=== PATIENT | female | born 2000 | race Caucasian/White ===

== ENCOUNTER 2020-04-03 09:49 | Observation (INO) ==
--- NOTE | 2020-04-03 10:41 | Emergency Department Note ---
History of Present Illness General Chief complaint: Abdominal Pain Stated complaint: ABD PAIN, APPENDICITIS, SLIGHT FEVER Time Seen by Provider: 04/03/20 10:11 History of Present Illness Maximum Pain Intensity: 1 Patient is an otherwise healthy 19-year-old female who presents to the emergency department from a local urgent care center for evaluation of abdominal pain. Patient relates that about 3 days ago, she began develop some indigestion. She thought it was related to foods that she had eaten, she tried eliminating dairy over the weekend, but symptoms persisted. She feels bloated, and has had a lot of belching. She also notes some discomfort in the left upper quadrant area, states that it sometimes feels swollen. That has worsened over the last 36 hours. She reports that she had a telehealth visit with [facility] for these symptoms at this morning. She was advised to be evaluated, so she went to a local [facility] facility. They did a brief physical exam, and noted that she had discomfort in the right lower quadrant, thus referred her to the emergency department for further work-up. The patient denies fever, chills, nausea or vomiting. She has had 2 bowel movements per day the last 2 days which is abnormal for her and that she normally only moves her bowels once per day, but the bowel movements were normal, without blood, melena or diarrhea. No urinary symptoms. She is on an oral contraceptive, she is due for her menstrual cycle in the next couple of days. She denies any vaginal discharge. She denies a history of stomach problems. She currently rates her discomfort a 1/10. Home Medications Home Medications Medication Instructions Recorded Confirmed Type norgestimate-ethinyl estradiol 1 tab PO QAM 04/03/20 04/03/20 History [Sprarjunec (28)] Allergies Allergy/AdvReac Type Severity Reaction Status Date / Time No Known Drug Allergies Allergy Verified 04/03/20 11:59 Past Med/Surg History Medical History No significant past medical history Surgical History Hx of tonsillectomy Hx of wisdom tooth extraction Family History (Updated 11/17/19 @ 11:52 by Suzi Orozco) Other Cardiac disorder Hypertension Social History Smoking Status: Never smoker marital status: Single current occupational status: student current occupation: [employer] Feels Safe at Home: Yes Dental Care, Regularly: Yes Seatbelt Use: always Sunscreen Use: Yes Review of Systems A total of 10 systems reviewed and were otherwise negative Physical Exam Vital Signs Vital Signs - 24 hr 04/03/20 10:00 04/03/20 12:48 04/03/20 14:00 Temperature 36.9 C Temperature Source Oral Pulse Rate 99 H Pulse Rate [Finger] 78 83 Respiratory Rate 18 17 18 Respiratory Effort / Characteristics Non-Labored Respiratory Depth Normal Respiratory Pattern Regular Blood Pressure 166/106 H Blood Pressure [Right Arm] 115/92 132/79 Blood Pressure Mean 126 Blood Pressure Mean [Right Arm] 99 96 Blood Pressure Position Sitting Pulse Oximetry 99 100 98 Oxygen Delivery Method Room Air Room Air Room Air Sepsis Recent Fever Within 48 Hours No Sepsis New/Unexplained Change in Mental Status No Sepsis Action Taken by Nursing No Action Required 04/03/20 15:17 Temperature Temperature Source Pulse Rate Pulse Rate [Finger] 68 Respiratory Rate 12 Respiratory Effort / Characteristics Non-Labored Spontaneous Respiratory Depth Normal Respiratory Pattern Regular Blood Pressure Blood Pressure [Right Arm] 133/87 Blood Pressure Mean Blood Pressure Mean [Right Arm] 102 Blood Pressure Position Pulse Oximetry 100 Oxygen Delivery Method Room Air Sepsis Recent Fever Within 48 Hours Sepsis New/Unexplained Change in Mental Status Sepsis Action Taken by Nursing CONSTITUTIONAL: Patient is a well-appearing 19-year-old female who is awake and alert and in no acute distress. EYES: Pupils equal, round, reactive to light and accommodation. EOMs intact without nystagmus. Sclera CARDIOVASCULAR: Regular rate and rhythm, with normal S1 and S2, no murmur or gallop or rub is heard. Peripheral pulses easily palpable. RESPIRATORY: Breath sounds equal and clear to auscultation without wheezes, rales, or rhonchi heard. Full and equal chest expansion without accessory muscle use or retractions. ABDOMEN: Bowel sounds are present. Abdomen is soft, scaphoid, mildly tender to percussion in the suprapubic, right lower quadrant and left lower quadrant, and tender to palpation in the right lower quadrant without guarding or rebound. Slight discomfort in the left mid abdomen as well. INTEGUMENTARY: No lesions or rash, normal skin turgor. LYMPH: No lymphadenopathy. Course Course The patient was seen and assessed as above. Old records are reviewed. She presents to the emergency department for evaluation of several days of abdominal discomfort, bloating and belching. She was found to have right lower quadrant tenderness at a local urgent care center and was thus referred here for evaluation. On exam here, she does have some tenderness in both the left and the right lower quadrant to palpation. Certainly no surgical abdomen. IV lock was initiated and laboratory studies were collected. She was instructed to remain n.p.o. She was hydrated gently with normal saline solution. CBC with differential, CMP, urine microscopy and urine test were performed. Acute abdominal series and pelvic ultrasound were performed first, while oral CT prep was initiated. Laboratory studies noted a white count of 4500, no left shift, no bandemia. No anemia. Electrolytes and renal functions are normal. Transaminases are not elevated. Urine microscopy notes 3+ ketones, trace blood, but no RBCs, negative leukocyte esterase, negative nitrates, 10-20 epithelial cells and 1+ bacteria. By protocol, urine microscopy is pending. Urine test is negative. Acute abdominal series was performed. Chest was clear without active disease, there was moderate fecal retention in the colon, no evidence for obstruction or free air. Pelvic ultrasound was unremarkable. Ovaries were normal without concerning adnexal lesions. No free fluid in the pelvic cul-de-sac. Appendiceal ultrasound did not visualize the appendix. Patient was reassessed after after x-ray and ultrasound. Her mother had arrived at this time. Laboratory studies and diagnostic imaging studies were reviewed with her. Patient endorsed that she had fairly significant discomfort in the right lower quadrant with the pelvic/appendiceal ultrasound. Given negative imaging thus far and persistent right lower quadrant pain felt that it was appropriate to proceed with the CT scan with IV and oral contrast. CT findings are concerning for acute appendicitis involving the appendiceal tip with mild periappendiceal infiltration with dilatation and wall thickening of the appendiceal tip. No free air or abscess. CT scan findings were reviewed with the patient and her mother. Discussed with them consultation with general surgery, spoke with Fern Spann PA-C, with Dr. Singh. They have evaluated the patient in the emergency department, and will plan to take her to the OR for surgical intervention. Administered Medications Sodium Chloride (Nss 1000ml) 1,000 mls @ 250 mls/hr IV .Q4H CHAI Stop: 05/03/20 10:44 Last Infusion: 04/03/20 15:09 Dose: 0 mls/hr Documented by: [id number] Admin: 04/03/20 11:04 Dose: 250 mls/hr Documented by: [id number] Discontinued Medications Ioversol (Ioversol 100ml) 92 ml IV ONCE ONE Stop: 04/03/20 14:12 Last Admin: 04/03/20 14:11 Dose: 92 ml Documented by: [id number] Medical Decision Making Differential Diagnosis Differential diagnoses entertained include UTI, pyelonephritis, renal colic, , ectopic , PID, tubo-ovarian abscess, appendicitis, ovarian cyst, ovarian torsion, constipation, bowel obstruction, among others. Medical Records Attestation: I reviewed the patient's medical records. Home Medications Current Medication List: was personally reviewed by me Laboratory Data Attestation: I reviewed the patient's lab results. Result diagrams: 04/03/20 11:00 04/03/20 11:00 Lab Results 04/03/20 04/03/20 04/03/20 Range/Units 11:00 11:00 11:00 WBC 4.50 L (4.8-10.8) K/uL RBC 4.89 (4.2-5.4) M/uL Hgb 14.6 (12.0-16.0) g/dL Hct 42.0 (37-47) % MCV 85.9 (80-100) fL MCH 29.9 (25-34) pg MCHC 34.8 (32-36) g/dL RDW Std Deviation 39.9 (36.4-46.3) fL RDW Coeff of Christianne 12.6 (11.5-14.5) % Plt Count 235 (130-400) K/uL MPV 10.0 (7.4-10.4) fL Immature Gran % (Auto) 0.0 % Neut % (Auto) 64.4 % Lymph % (Auto) 26.7 % Pershing % (Auto) 7.8 % Eos % (Auto) 0.7 % Baso % (Auto) 0.4 % Neut # (Auto) 2.90 (1.4-6.5) K/uL Lymph # (Auto) 1.20 (1.2-3.4) K/uL Pershing # (Auto) 0.35 (0.11-0.59) K/uL Eos # (Auto) 0.03 (0-0.5) K/uL Baso # (Auto) 0.02 (0-0.2) K/uL Immature Gran # (Auto) 0.00 (0.00-0.02) K/uL Sodium 137 (136-145) mmol/L Potassium 3.7 (3.5-5.1) mmol/L Chloride 105 (98-107) mmol/L Carbon Dioxide 24 (21-32) mmol/L Anion Gap 8.0 (3-11) BUN 10 (7-18) mg/dl Creatinine 0.80 (0.6-1.2) mg/dl Est Cr Clr Drug Dosing 92.7 ml/min Est GFR ( Amer) 122.2 Est GFR (Non-Af Amer) 105.4 BUN/Creatinine Ratio 12.1 (10-20) Glucose 74 (70-99) mg/dl Calcium 9.0 (8.5-10.1) mg/dl Total Bilirubin 0.8 (0.2-1) mg/dl AST 14 L (15-37) U/L ALT 15 (12-78) U/L Alkaline Phosphatase 58 (45-117) U/L Total Protein 8.2 (6.4-8.2) gm/dl Albumin 3.8 (3.4-5.0) gm/dl Globulin 4.4 H (2.5-4.0) gm/dl Albumin/Globulin Ratio 0.9 (0.9-2) Urine Color Yellow Urine Appearance Clear (Clear) Urine pH 6.0 (4.5-7.5) Ur Specific [place] 1.020 (1.000-1.030) Urine Protein 1+ H (Negative) Urine Glucose (UA) Negative (Negative) Urine Ketones 3+ H (Negative) Urine Blood Trace H (Negative) Urine Nitrite Negative (Negative) Urine Bilirubin Negative (Negative) Urine Urobilinogen Negative (Negative) Ur Leukocyte Esterase Negative (Negative) Urine RBC 0-4 (0-4) /hpf Urine WBC 0-5 (0-5) /hpf Ur Epithelial Cells 10-20 H (0-5) /lpf Urine Bacteria 1+ H (Negative) Urine Mucus Present A (None Prsent) POC Ur Test (NEG) 04/03/20 Range/Units 11:00 WBC (4.8-10.8) K/uL RBC (4.2-5.4) M/uL Hgb (12.0-16.0) g/dL Hct (37-47) % MCV (80-100) fL MCH (25-34) pg MCHC (32-36) g/dL RDW Std Deviation (36.4-46.3) fL RDW Coeff of Christianne (11.5-14.5) % Plt Count (130-400) K/uL MPV (7.4-10.4) fL Immature Gran % (Auto) % Neut % (Auto) % Lymph % (Auto) % Pershing % (Auto) % Eos % (Auto) % Baso % (Auto) % Neut # (Auto) (1.4-6.5) K/uL Lymph # (Auto) (1.2-3.4) K/uL Pershing # (Auto) (0.11-0.59) K/uL Eos # (Auto) (0-0.5) K/uL Baso # (Auto) (0-0.2) K/uL Immature Gran # (Auto) (0.00-0.02) K/uL Sodium (136-145) mmol/L Potassium (3.5-5.1) mmol/L Chloride (98-107) mmol/L Carbon Dioxide (21-32) mmol/L Anion Gap (3-11) BUN (7-18) mg/dl Creatinine (0.6-1.2) mg/dl Est Cr Clr Drug Dosing ml/min Est GFR ( Amer) Est GFR (Non-Af Amer) BUN/Creatinine Ratio (10-20) Glucose (70-99) mg/dl Calcium (8.5-10.1) mg/dl Total Bilirubin (0.2-1) mg/dl AST (15-37) U/L ALT (12-78) U/L Alkaline Phosphatase (45-117) U/L Total Protein (6.4-8.2) gm/dl Albumin (3.4-5.0) gm/dl Globulin (2.5-4.0) gm/dl Albumin/Globulin Ratio (0.9-2) Urine Color Urine Appearance (Clear) Urine pH (4.5-7.5) Ur Specific [place] (1.000-1.030) Urine Protein (Negative) Urine Glucose (UA) (Negative) Urine Ketones (Negative) Urine Blood (Negative) Urine Nitrite (Negative) Urine Bilirubin (Negative) Urine Urobilinogen (Negative) Ur Leukocyte Esterase (Negative) Urine RBC (0-4) /hpf Urine WBC (0-5) /hpf Ur Epithelial Cells (0-5) /lpf Urine Bacteria (Negative) Urine Mucus (None Prsent) POC Ur Test NEG (NEG) Imaging Data Attestation: I personally reviewed and interpreted this imaging study as follows: Radiologist's Impression: PA CHEST WITH ABDOMINAL SERIES CLINICAL HISTORY: Left upper quadrant abdominal pain. Bloating. FINDINGS: A PA chest radiograph is obtained. No prior studies are available for comparison at the time of dictation. The cardiomediastinal silhouette is unremarkable. An accessory azygous fissure is incidentally noted. The lungs and pleural spaces are clear. No pneumothorax is seen. The bony thorax is grossly intact. There is mild thoracic scoliosis. Supine and erect abdominal radiographs are obtained. No prior studies are av ailable for comparison at the time of dictation. There is a nonobstructed abdominal bowel gas pattern. Moderate fecal retention is noted in the colon. No evidence of intraperitoneal free air is seen. There are no abnormal abdominal calcifications. Small phleboliths are observed in the pelvis. The lumbosacral spine and bony pelvis appear intact. IMPRESSION: 1. No active disease in the chest. 2. Nonobstructed abdominal bowel gas pattern. ULTRASOUND OF THE PELVIS CLINICAL HISTORY: Right pelvic pain. COMPARISON STUDY: No priors. TECHNIQUE: Real-time, grayscale, and color flow sonography of the pelvis is performed both transabdominally and endovaginally. Images are reviewed in the transverse and longitudinal planes. The endovaginal examination was performed fo r better assessment of the ovaries and adnexa. FINDINGS: Uterus: The uterus is normal in size and echotexture, measuring 7.4 x 3.2 x 5.2 cm. Endometrium: The endometrium is normal in appearance, and the endometrial stripe is normal in thickness measuring up to 0.2 cm. Ovaries: The ovaries are normal in size and morphology. The right ovary measures 2.7 x 1.1 x 1.3 cm and the left ovary measures 2.0 x 0.8 x 1.9 cm. Small follicles are noted bilaterally. Normal Doppler waveforms are shown within both ovaries. Pelvis: There is no free fluid in the cul-de-sac. No concerning adnexal lesion is seen. IMPRESSION: No acute sonographic abnormality is identified. CT OF THE ABDOMEN AND PELVIS WITH CONTRAST CLINICAL HISTORY: LOWER ABDOMINAL PAIN X 2 DAYS COMPARISON STUDY: Appendix ultrasound pelvic ultrasound performed earlier today. TECHNIQUE: Following IV administration of 92 mL of Optiray-320, axial images of the abdomen and pelvis were obtained from the lung bases to the proximal femurs. Images were reviewed in the axial, sagittal, and coronal planes. IV contrast was administered without complication. Automated exposure control was utilized for the study. A dose lowering technique was utilized adhering to the principles of ALARA. Oral contrast was administered. CT DOSE: 296.63 mGycm FINDINGS: Lung bases are unremarkable. No pneumatosis, free air or portal venous gas is present. The liver, spleen, adrenal glands, kidneys and pancreas are normal. There is no biliary or pancreatic ductal dilatation. There is no hydronephrosis. There is no evidence for a bowel obstruction. The proximal to mid appendix is normal in caliber and filled with oral contrast. There is wall thickening and dilatation of the appendiceal tip that measures 1.3 cm in mechelle iber. There is mild adjacent infiltration. There is no abscess. There is no hydronephrosis. Pelvic calcifications likely reflect phlebolith. Major vasculature is patent. There are no suspicious osseous lesions. IMPRESSION: Findings consistent with acute appendicitis involving the appendiceal tip. Mild periappendiceal infiltration with dilatation and wall thickening of the appendiceal tip. No free air or abscess. Blood Pressure Blood Pressure Findings: Normal blood pressure Blood Pressure Disposition: did not require urgent referral MDM Narrative See ED course. Impression & Plan Acute appendicitis Discharge Plan Visit Data Chief Complaint: Abdominal Pain Stated Complaint: ABD PAIN, APPENDICITIS, SLIGHT FEVER ED Provider: Benjamin Veronica ED Midlevel Provider: Apolinar Cho Discharge Problem: Acute appendicitis Patient Disposition: Being Evaluated by Surgeon Forms Stand Alone Forms: [facility] [employer] Prescriptions Prescriptions: No Action norgestimate-ethinyl estradiol [Sprintec (28)] 0.25-35 mg-mcg tablet 1 tab PO QAM RF: 0 Referrals Referrals: [facility] [Primary Care Provider] -
[2020-04-03] MEDS: SODIUM CHLORIDE 0.9% 1000ML 1,000 ML IV SCH ×3 (11:04→23:01)
[2020-04-03 11:10] LABS: Appearance Urine Clear (Clear); Bilirubin Urine Negative (Negative); Blood Urine Trace (Negative); Color Urine Yellow; Glucose Urine UA Negative (Negative); Ketones Urine 3+ (Negative); Leukocyte Esterase Urine Negative (Negative); Nitrite Urine Negative (Negative); Protein Urine 1+ (Negative); Urobilinogen Urine Negative (Negative)
[2020-04-03 11:11] LABS: Basophils # (auto) 0.02 K/uL (0-0.2); Basophils % (auto) 0.4 %; Eosinophils # (auto) 0.03 K/uL (0-0.5); Eosinophils % (auto) 0.7 %; Hemoglobin 14.6 g/dL (12.0-16.0); Lymphocytes % (auto) 26.7 %; Mean Corpuscular Hemoglobin 29.9 pg (25-34); Mean Corpuscular Hgb Conc 34.8 g/dL (32-36); Mean Corpuscular Volume 85.9 fL (80-100); Monocytes # (auto) 0.35 K/uL (0.11-0.59); Monocytes % (auto) 7.8 %; Neutrophils % (auto) 64.4 %; Platelet Count 235 K/uL (130-400); RDW Coefficient of Variation 12.6 % (11.5-14.5); RDW Standard Deviation 39.9 fL (36.4-46.3); Red Blood Count 4.89 M/uL (4.2-5.4)
[2020-04-03 11:25] LABS: Mucus Urine Present (None Prsent)
[2020-04-03 11:26] LABS: Bacteria Urine 1+ (Negative); RBC Urine 0-4 /hpf (0-4); WBC Urine 0-5 /hpf (0-5)
[2020-04-03 11:31] LABS: Albumin Level 3.8 gm/dl (3.4-5.0); BUN Creatinine Ratio 12.1 (10-20); Creatinine Clr Calc Pharmacy 92.7 ml/min; Est GFR (African American) 122.2; Est GFR (Non-African American) 105.4; Potassium 3.7 mmol/L (3.5-5.1)
[2020-04-03 11:34] LABS: Albumin Globulin Ratio 0.9 (0.9-2); Bilirubin,Total 0.8 mg/dl (0.2-1); Globulin 4.4 gm/dl (2.5-4.0); Total Protein 8.2 gm/dl (6.4-8.2)
--- NOTE | 2020-04-03 11:39 | XRay Report ---
PA CHEST WITH ABDOMINAL SERIES CLINICAL HISTORY: Left upper quadrant abdominal pain. Bloating. FINDINGS: A PA chest radiograph is obtained. No prior studies are available for comparison at the time of dicta tion. The cardiomediastinal silhouette is unremarkable. An accessory azygous fissure is incidentally noted. The lungs and pleural spaces are clear. No pneumothorax is seen. The bony thorax is grossly in tact. There is mild thoracic scoliosis. Supine and erect abdominal radiographs are obtained. No prior studies are available for comparison at the time of dictation. There is a nonobstructed abdominal bowel gas pattern. Moderate fecal retenti on is noted in the colon. No evidence of intraperitoneal free air is seen. There are no abnormal abdo cheryl calcifications. Small phleboliths are observed in the pelvis. The lumbosacral spine and bony pe lvis appear intact. IMPRESSION: 1. No active disease in the chest. 2. Nonobstructed abdominal bowel gas pattern. ACT 112: Negative or not required by law. Electronically signed by: Pavel Reyna M.D. 04/03/2020 11:37 AM
--- NOTE | 2020-04-03 12:41 | Ultrasound Report ---
ULTRASOUND OF THE APPENDIX CLINICAL HISTORY: Right lower quadrant abdominal pain. COMPARISON STUDY: Abdominal radiographs dated 04/03/2020. FINDINGS: Real-time, grayscale, and color flow sonography of the right lower quadrant was performed t o assess for acute appendicitis. The appendix was not discretely visualized. No inflammatory changes or free fluid are seen in the right lower quadrant. No lymphadenopathy was seen. IMPRESSION: Nonvisualization of the appendix. Note that this does not exclude acute appendicitis. ACT 112: Negative or not required by law. Electronically signed by: Pavel Reyna M.D. 04/03/2020 12:40 PM
--- NOTE | 2020-04-03 12:43 | Ultrasound Report ---
ULTRASOUND OF THE PELVIS CLINICAL HISTORY: Right pelvic pain. COMPARISON STUDY: No priors. TECHNIQUE: Real-time, grayscale, and color flow sonography of the pelvis is performed both transabdom inally and endovaginally. Images are reviewed in the transverse and longitudinal planes. The endovagi nal examination was performed for better assessment of the ovaries and adnexa. FINDINGS: Uterus: The uterus is normal in size and echotexture, measuring 7.4 x 3.2 x 5.2 cm. Endometrium: The endometrium is normal in appearance, and the endometrial stripe is normal in thickne ss measuring up to 0.2 cm. Ovaries: The ovaries are normal in size and morphology. The right ovary measures 2.7 x 1.1 x 1.3 cm a nd the left ovary measures 2.0 x 0.8 x 1.9 cm. Small follicles are noted bilaterally. Normal Doppler waveforms are shown within both ovaries. Pelvis: There is no free fluid in the cul-de-sac. No concerning adnexal lesion is seen. IMPRESSION: No acute sonographic abnormality is identified. ACT 112: Negative or not required by law. Electronically signed by: Pavel Reyna M.D. 04/03/2020 12:41 PM
[2020-04-03] MEDS ORDERED: IOVERSOL 100ml IV ONE (14:11)
--- NOTE | 2020-04-03 14:24 | CT Scan Report ---
CT OF THE ABDOMEN AND PELVIS WITH CONTRAST CLINICAL HISTORY: LOWER ABDOMINAL PAIN X 2 DAYS COMPARISON STUDY: Appendix ultrasound pelvic ultrasound performed earlier today. TECHNIQUE: Following IV administration of 92 mL of Optiray-320, axial images of the abdomen and pelvi s were obtained from the lung bases to the proximal femurs. Images were reviewed in the axial, sagitt al, and coronal planes. IV contrast was administered without complication. Automated exposure contro l was utilized for the study. A dose lowering technique was utilized adhering to the principles of A YOUSUF. Oral contrast was administered. CT DOSE: 296.63 mGycm FINDINGS: Lung bases are unremarkable. No pneumatosis, free air or portal venous gas is present. The liver, spleen, adrenal glands, kidneys and pancreas are normal. There is no biliary or pancreatic carroll yenifer dilatation. There is no hydronephrosis. There is no evidence for a bowel obstruction. The proxima l to mid appendix is normal in caliber and filled with oral contrast. There is wall thickening and di latation of the appendiceal tip that measures 1.3 cm in caliber. There is mild adjacent infiltration. There is no abscess. There is no hydronephrosis. Pelvic calcifications likely reflect phlebolith. Ma elva vasculature is patent. There are no suspicious osseous lesions. IMPRESSION: Findings consistent with acute appendicitis involving the appendiceal tip. Mild periappe ndiceal infiltration with dilatation and wall thickening of the appendiceal tip. No free air or absce ss. ACT 112: Negative or not required by law. Electronically signed by: Rich Arias M.D. 04/03/2020 2:23 PM
[2020-04-03] MEDS ORDERED: cefOXitin 2,000 MG in DEXTROSE 5% 50 ML IV STA (15:21)
--- NOTE | 2020-04-03 15:21 | History & Physical Report ---
Date of Service April 03, 2020 Assessment & Plan (1) Acute appendicitis: 19 year-old otherwise healthy [employer] student presented to ER with 2-3 day history of abdominal pain, bloating, and indigestion. ER work-up showed no leukocytosis but tip of appendix dilated at 1.3 cm with periappendiceal infiltration consistent with tip appendicitis. Afebrile, vitals stable. Plan: Dr. Singh discussed CT findings and recommended laparoscopic appendectomy. Procedure and risks discussed and informed consent obtained Keep NPO 2 gms Cefoxitin preop med/surg postop, likely home tomorrow if procedure goes smoothly Dr. Singh has seen and examined pt, agrees with above History of Present Illness Chief Complaint: abdominal pain, bloating, indigestion Primary Care Provider: [facility] Marii is a 19 year-old [employer] student who presented to emergency department from [facility] for 2-3 day history of abdominal pain, bloating, and indigestion. Has some left upper abdominal pain and then more so in lower right abdomen. No improvement. Bowels have been more frequent but no diarrhea. No nausea or vomiting. never had this type of pain before. No prior abdominal surgeries. Er work-up included labs which showed no leukocytosis. Pelvic ultrasound, abdominal xray, appendix ultrasound showed no abnormalities. CT scan of abdomen and pelvis with IV and oral contrast was then ordered due to continued RLQ abdominal pain which showed dilation of the tip of appendix measuring 1.3 cm. No evidence of perforation or abscess consistent with tip appendicitis. Allergies Allergy/AdvReac Type Severity Reaction Status Date / Time No Known Drug Allergies Allergy Verified 04/03/20 11:59 Home Medications Home Medications Medication Instructions Recorded Confirmed Type norgestimate-ethinyl estradiol 1 tab PO QAM 04/03/20 04/03/20 History [Sprintec (28)] Past Med/Surg History Medical History No significant past medical history Surgical History Hx of tonsillectomy Hx of wisdom tooth extraction Family History (Updated 11/17/19 @ 11:52 by Suzi Orozco) Other Cardiac disorder Hypertension Social History Smoking Status: Never smoker marital status: Single current occupational status: student current occupation: [employer] major Feels Safe at Home: Yes Dental Care, Regularly: Yes Seatbelt Use: always Sunscreen Use: Yes Review of Systems Review of Systems: All systems reviewed & are unremarkable except as noted in HPI & below Physical Exam Constitutional: WD/WN, vitals as above + thin; no acute distress and not ill appearing Respiratory: normal respiratory effort, lungs clear to auscultation Cardiovascular: RRR, no murmur, no edema Gastrointestinal (Abdomen): Inspection/Auscultation: abdomen normal to inspection; abdomen not distended Percussion/Palpation: + abdomen tender (RLQ) and abdomen soft; no guarding and abdomen not rigid Skin: no rashes, warm and dry Psychiatric: A+Ox3, euthymic affect Results & Data Results & Data ([facility]) Vital Signs (Past 12 Hours) Vital Signs Temp Pulse Pulse Resp BP BP Pulse Ox 04/03/20 14:00 83 18 132/79 98 04/03/20 12:48 78 17 115/92 100 04/03/20 10:00 36.9 C 99 H 18 166/106 H 99 Laboratory Results 04/03/20 04/03/20 04/03/20 Range/Units 11:00 11:00 11:00 WBC (4.8-10.8) K/uL RBC (4.2-5.4) M/uL Hgb (12.0-16.0) g/dL Hct (37-47) % MCV (80-100) fL MCH (25-34) pg MCHC (32-36) g/dL RDW Std Deviation (36.4-46.3) fL RDW Coeff of Christianne (11.5-14.5) % Plt Count (130-400) K/uL MPV (7.4-10.4) fL Immature Gran % (Auto) % Neut % (Auto) % Lymph % (Auto) % [place] % (Auto) % Eos % (Auto) % Baso % (Auto) % Neut # (Auto) (1.4-6.5) K/uL Lymph # (Auto) (1.2-3.4) K/uL [place] # (Auto) (0.11-0.59) K/uL Eos # (Auto) (0-0.5) K/uL Baso # (Auto) (0-0.2) K/uL Immature Gran # (Auto) (0.00-0.02) K/uL Sodium 137 (136-145) mmol/L Potassium 3.7 (3.5-5.1) mmol/L Chloride 105 (98-107) mmol/L Carbon Dioxide 24 (21-32) mmol/L Anion Gap 8.0 (3-11) BUN 10 (7-18) mg/dl Creatinine 0.80 (0.6-1.2) mg/dl Est Cr Clr Drug Dosing 92.7 ml/min Est GFR ( Amer) 122.2 Est GFR (Non-Af Amer) 105.4 BUN/Creatinine Ratio 12.1 (10-20) Glucose 74 (70-99) mg/dl Calcium 9.0 (8.5-10.1) mg/dl Total Bilirubin 0.8 (0.2-1) mg/dl AST 14 L (15-37) U/L ALT 15 (12-78) U/L Alkaline Phosphatase 58 (45-117) U/L Total Protein 8.2 (6.4-8.2) gm/dl Albumin 3.8 (3.4-5.0) gm/dl Globulin 4.4 H (2.5-4.0) gm/dl Albumin/Globulin Ratio 0.9 (0.9-2) Urine Color Yellow Urine Appearance Clear (Clear) Urine pH 6.0 (4.5-7.5) Ur Specific [place] 1.020 (1.000-1.030) Urine Protein 1+ H (Negative) Urine Glucose (UA) Negative (Negative) Urine Ketones 3+ H (Negative) Urine Blood Trace H (Negative) Urine Nitrite Negative (Negative) Urine Bilirubin Negative (Negative) Urine Urobilinogen Negative (Negative) Ur Leukocyte Esterase Negative (Negative) Urine RBC 0-4 (0-4) /hpf Urine WBC 0-5 (0-5) /hpf Ur Epithelial Cells 10-20 H (0-5) /lpf Urine Bacteria 1+ H (Negative) Urine Mucus Present A (None Prsent) POC Ur Test NEG (NEG) 04/03/20 Range/Units 11:00 WBC 4.50 L (4.8-10.8) K/uL RBC 4.89 (4.2-5.4) M/uL Hgb 14.6 (12.0-16.0) g/dL Hct 42.0 (37-47) % MCV 85.9 (80-100) fL MCH 29.9 (25-34) pg MCHC 34.8 (32-36) g/dL RDW Std Deviation 39.9 (36.4-46.3) fL RDW Coeff of Christianne 12.6 (11.5-14.5) % Plt Count 235 (130-400) K/uL MPV 10.0 (7.4-10.4) fL Immature Gran % (Auto) 0.0 % Neut % (Auto) 64.4 % Lymph % (Auto) 26.7 % [place] % (Auto) 7.8 % Eos % (Auto) 0.7 % Baso % (Auto) 0.4 % Neut # (Auto) 2.90 (1.4-6.5) K/uL Lymph # (Auto) 1.20 (1.2-3.4) K/uL [place] # (Auto) 0.35 (0.11-0.59) K/uL Eos # (Auto) 0.03 (0-0.5) K/uL Baso # (Auto) 0.02 (0-0.2) K/uL Immature Gran # (Auto) 0.00 (0.00-0.02) K/uL Sodium (136-145) mmol/L Potassium (3.5-5.1) mmol/L Chloride (98-107) mmol/L Carbon Dioxide (21-32) mmol/L Anion Gap (3-11) BUN (7-18) mg/dl Creatinine (0.6-1.2) mg/dl Est Cr Clr Drug Dosing ml/min Est GFR ( Amer) Est GFR (Non-Af Amer) BUN/Creatinine Ratio (10-20) Glucose (70-99) mg/dl Calcium (8.5-10.1) mg/dl Total Bilirubin (0.2-1) mg/dl AST (15-37) U/L ALT (12-78) U/L Alkaline Phosphatase (45-117) U/L Total Protein (6.4-8.2) gm/dl Albumin (3.4-5.0) gm/dl Globulin (2.5-4.0) gm/dl Albumin/Globulin Ratio (0.9-2) Urine Color Urine Appearance (Clear) Urine pH (4.5-7.5) Ur Specific [place] (1.000-1.030) Urine Protein (Negative) Urine Glucose (UA) (Negative) Urine Ketones (Negative) Urine Blood (Negative) Urine Nitrite (Negative) Urine Bilirubin (Negative) Urine Urobilinogen (Negative) Ur Leukocyte Esterase (Negative) Urine RBC (0-4) /hpf Urine WBC (0-5) /hpf Ur Epithelial Cells (0-5) /lpf Urine Bacteria (Negative) Urine Mucus (None Prsent) POC Ur Test (NEG) Diagnostic Findings CT OF THE ABDOMEN AND PELVIS WITH CONTRAST CLINICAL HISTORY: LOWER ABDOMINAL PAIN X 2 DAYS COMPARISON STUDY: Appendix ultrasound pelvic ultrasound performed earlier today. TECHNIQUE: Following IV administration of 92 mL of Optiray-320, axial images of the abdomen and pelvis were obtained from the lung bases to the proximal femurs. Images were reviewed in the axial, sagittal, and coronal planes. IV contrast was administered without complication. Automated exposure control was utilized for the study. A dose lowering technique was utilized adhering to the principles of ALARA. Oral contrast was administered. CT DOSE: 296.63 mGycm FINDINGS: Lung bases are unremarkable. No pneumatosis, free air or portal venous gas is present. The liver, spleen, adrenal glands, kidneys and pancreas are normal. There is no biliary or pancreatic ductal dilatation. There is no hydronephrosis. There is no evidence for a bowel obstruction. The proximal to mid appendix is normal in caliber and filled with oral contrast. There is wall thickening and dilatation of the appendiceal tip that measures 1.3 cm in caliber. There is mild adjacent infiltration. There is no abscess. There is no hydronephrosis. Pelvic calcifications likely reflect phlebolith. Major vasculature is patent. There are no suspicious osseous lesions. IMPRESSION: Findings consistent with acute appendicitis involving the appendiceal tip. Mild periappendiceal infiltration with dilatation and wall thickening of the appendiceal tip. No free air or abscess. Code Status & VTE Plan VTE Prophylaxis Plan VTE Prophylaxis will be ordered: Yes
--- NOTE | 2020-04-03 16:06 | History & Physical Bridge Note ---
Date of Service April 03, 2020 History & Physical Bridge Note I have examined the patient, reviewed the History & Physical and in the interval since the performance of the History & Physical I have noted the following changes of clinical significance: no changes noted
[2020-04-03] MEDS ORDERED: ROCURONIUM BROMIDE 10 MG/ML 5 ML VIAL IV ONE (18:14)
[2020-04-03] MEDS ORDERED: SUCCINYLCHOLINE 100MG/5ML SYR IV ONE (18:14)
[2020-04-03] MEDS ORDERED: LIDOCAINE HCL 2% 2 ML VIAL/AMP(20MG/ML) INFIL ONE (18:14)
[2020-04-03] MEDS ORDERED: MIDAZOLAM HCL 1 MG/ML 2ML VIAL ONE (18:14)
[2020-04-03] MEDS ORDERED: fentaNYL citrate 100 MCG/2 ML VIAL ONE ×2 (18:14→19:27)
[2020-04-03] MEDS ORDERED: PROPOFOL IV EMULSION 10 MG/ML 20 ML VIAL IV ONE (18:14)
[2020-04-03] MEDS ORDERED: ONDANSETRON INJ 2 MG/ML 2 ML VIAL IV PRN ×2 (18:44→20:07)
[2020-04-03] MEDS ORDERED: HYDROmorphone INJ 2 MG/ML SYR/VIAL IV PRN (18:44)
[2020-04-03] MEDS ORDERED: ATROPINE SULFATE 0.1 MG/ML 10ML SYR IV PRN (18:44)
[2020-04-03] MEDS ORDERED: fentaNYL citrate 100 MCG/2 ML VIAL IV PRN (18:44)
[2020-04-03] MEDS ORDERED: ePHEDrine sulfate 50 MG/ML AMP IV PRN (18:44)
--- NOTE | 2020-04-03 18:44 | Anesthesiology Consultation ---
Date of Service April 03, 2020 Assessment & Plan ASA ASA1 Proposed Anesthesia Anesthesia Type: General Risk / Benefits Reviewed With: PT / POA / Parent / Guardian, Accepts Plan and Informed Consent Obtained History Surgery Operation Date: 04/03/20 13:45 Proposed Procedures p Laparoscopic Appendectomy - Lj Singh MD Height/Weight Height: 5 ft 5 in Weight: 52.8 kg Allergies Allergy/AdvReac Type Severity Reaction Status Date / Time No Known Drug Allergies Allergy Verified 04/03/20 11:59 Medications Home Medications Medication Instructions Recorded Confirmed Last Taken norgestimate-ethinyl estradiol 1 tab PO QAM 04/03/20 04/03/20 03/31/20 [Sprintec (28)] Active Medications Generic Name Dose Route Start Last Admin Trade Name Freq PRN Reason Stop Dose Admin Sodium Chloride 1,000 mls @ 250 mls/hr 04/03/20 10:45 04/03/20 15:09 Nss 1000ml IV 05/03/20 10:44 Infused .Q4H CHAI Infusion NPO Date Last Intake of Fluids: 04/02/20 Time Last Intake of Fluids: 18:30 Date Last Intake of Solids: 04/02/20 Time Last Intake of Solids: 18:30 Past Medical History Medical History No significant past medical history Exercise / Class Metabolic Activity II 4-5 Yardwork/Stairs/Walk up hill Past Family History Family History Other Cardiac disorder Hypertension Past Surgical History Surgical History Hx of tonsillectomy Hx of wisdom tooth extraction Past Anesthesia History No Hx of Anesthesia Complications and No Family Hx of Anesthesia Complications History of PONV No Hx of PONV and No Hx of Motion Sickness Social History Smoking Status: Never smoker Review of Systems denies fever/cough/ colds/ chest pain/ SOB/ JELANI Constitutional: no fever and no chills Respiratory: no cough and no dyspnea denies JELANI Cardiovascular: no chest pain and no dyspnea on exertion Physical Exam Vital Signs Last Vital Signs Temp 37.2 C 04/03/20 18:31 Pulse 96 H 04/03/20 18:31 Resp 16 04/03/20 18:31 BP 140/83 04/03/20 18:31 Pulse Ox 98 04/03/20 18:31 ENMT Mouth: no TMJ abnormality and no dentition abnormality Thyromental Distance: > or= 3.5 Finger Breadths Mallampati Class: II Neck neck extension not limited Respiratory normal respiratory effort; no respiratory distress Auscultation: lungs clear to auscultation bilaterally Cardiovascular Rate/Rhythm: regular rate and regular rhythm Neurologic moves all extremities Psychiatric Orientation: alert and oriented x 3 Testing Laboratory Results 04/03/20 11:00 04/03/20 11:00 Urine Color Yellow 04/03/20 11:00 Urine Appearance Clear (Clear) 04/03/20 11:00 Urine pH 6.0 (4.5-7.5) 04/03/20 11:00 Ur Specific [place] 1.020 (1.000-1.030) 04/03/20 11:00 Urine Protein 1+ (Negative) H 04/03/20 11:00 Urine Glucose (UA) Negative (Negative) 04/03/20 11:00 Urine Ketones 3+ (Negative) H 04/03/20 11:00 Urine Nitrite Negative (Negative) 04/03/20 11:00 Ur Leukocyte Esterase Negative (Negative) 04/03/20 11:00 Urine RBC 0-4 /hpf (0-4) 04/03/20 11:00 Urine WBC 0-5 /hpf (0-5) 04/03/20 11:00 Ur Epithelial Cells 10-20 /lpf (0-5) H 04/03/20 11:00 04/03/20 11:00 POC Ur Test NEG :
[2020-04-03] MEDS ORDERED: BUPIVACAINE 0.5 % 5 MG/1 ML MPF 30ML VIAL ONE (19:14)
[2020-04-03] MEDS ORDERED: LIDOCAINE HCL 1% 20 ML VIAL ONE (19:14)
[2020-04-03] MEDS ORDERED: BACITRACIN OINT 15 GM TUBE ONE (19:14)
[2020-04-03] MEDS ORDERED: KETOROLAC 30 MG/ML VIAL ONE (19:25)
[2020-04-03] MEDS ORDERED: DEXAMETHASONE SOD INJ 4 MG/ML VIAL ONE ×2 (19:25)
[2020-04-03] MEDS ORDERED: ONDANSETRON INJ 2 MG/ML 2 ML VIAL ONE (19:25)
[2020-04-03] MEDS ORDERED: GLYCOPYRROLATE 0.2 MG/ML VIAL ONE (19:31)
[2020-04-03] MEDS ORDERED: NEOSTIGMINE METHYLSULFATE 5 MG/5 ML SYR ONE (19:31)
--- NOTE | 2020-04-03 20:02 | Post Operative Brief Note ---
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
--- NOTE | 2020-04-03 20:40 | Anesthesiology Progress Note ---
Date of Service April 03, 2020 Anesthesia Post Procedure Vital Signs Vital Signs: Temp Pulse Pulse Pulse Resp BP BP 04/03/20 20:30 64 21 135/75 04/03/20 20:20 85 18 123/88 04/03/20 20:12 37.8 C H 111 H 17 134/91 04/03/20 18:31 37.2 C 96 H 16 140/83 04/03/20 18:20 70 19 04/03/20 18:10 63 19 04/03/20 18:01 71 19 04/03/20 18:00 77 19 116/75 04/03/20 17:50 70 23 04/03/20 17:40 77 18 04/03/20 17:30 66 18 04/03/20 17:20 71 18 04/03/20 17:10 75 18 04/03/20 17:03 77 15 04/03/20 17:00 73 19 139/82 04/03/20 16:50 71 14 04/03/20 16:40 66 19 04/03/20 16:31 72 13 04/03/20 16:30 86 16 125/86 04/03/20 16:20 65 21 04/03/20 16:10 68 20 04/03/20 16:01 69 21 04/03/20 16:00 67 22 142/88 H 04/03/20 15:50 70 20 04/03/20 15:49 70 17 04/03/20 15:36 58 L 18 04/03/20 15:30 60 16 126/75 04/03/20 15:17 68 12 133/87 04/03/20 14:00 83 18 132/79 04/03/20 12:48 78 17 115/92 04/03/20 10:00 36.9 C 99 H 18 166/106 H Pulse Ox 04/03/20 20:30 98 04/03/20 20:20 99 04/03/20 20:12 98 04/03/20 18:31 98 04/03/20 18:20 98 04/03/20 18:10 98 04/03/20 18:01 99 04/03/20 18:00 98 04/03/20 17:50 97 04/03/20 17:40 97 04/03/20 17:30 98 04/03/20 17:20 98 04/03/20 17:10 97 04/03/20 17:03 04/03/20 17:00 98 04/03/20 16:50 97 04/03/20 16:40 99 04/03/20 16:31 97 04/03/20 16:30 99 04/03/20 16:20 100 04/03/20 16:10 99 04/03/20 16:01 100 04/03/20 16:00 100 04/03/20 15:50 04/03/20 15:49 04/03/20 15:36 100 04/03/20 15:30 100 04/03/20 15:17 100 04/03/20 14:00 98 04/03/20 12:48 100 04/03/20 10:00 99 Transfer of Care Handoff Completed per policy Notes Mental Status: alert / awake / arousable and participated in evaluation Patient Amnestic to Procedure: Yes Nausea / Vomiting: adequately controlled Pain: adequately controlled Airway Patency, RR, SpO2: stable & adequate BP & HR: stable & adequate Hydration State: stable & adequate Anesthetic Complications: no major complications apparent and Pt Satisfied with anesthetic care
[2020-04-03] MEDS ORDERED: HYDROmorphone INJ 0.5 MG/0.5 ML SYR IV PRN (21:15)
[2020-04-03] MEDS ORDERED: LACTATED RINGER'S 1,000 ML IV SCH (21:15)
[2020-04-03] MEDS: OXYCODONE/ACETAMINOPHEN 5mg/325mg TAB PO PRN (21:33)
--- NOTE | 2020-04-04 02:44 | Operative Report (OR) ---
DATE OF OPERATION: 04/03/2020 PREOPERATIVE DIAGNOSIS: Acute appendicitis. POSTOPERATIVE DIAGNOSIS: Acute appendicitis. OPERATION: Laparoscopic appendectomy. SURGEON: Lj Singh MD. ANESTHESIA: General. ESTIMATED BLOOD LOSS: About 5 mL. FINDINGS: Acute appendicitis, enlarged appendix with inflammation. COMPLICATIONS: None. INDICATIONS FOR THE PROCEDURE: This is a 19-year-old female who presented to ED with acute abdominal pain. The patient had a CT scan diagnosis of acute appendicitis. I recommended to do the laparoscopic appendectomy, possible open. I did talk to the patient and patient's mom about the benefit, the risk, alternate procedure. I indicated the risks may include but not limited such as bleeding, infection, abscess, injury to other organs, small-bowel obstruction. They understand and they are agreed to proceed with the procedure, the patient signed informed consent and I answered all questions. DETAILS OF PROCEDURE: We brought the patient to the OR, put the patient in the supine position. The patient received SCD on bilateral legs to prevent DVT. Also, patient received 2 g cefoxitin IV for prophylactic antibiotic. The patient received general anesthesia without difficulty. The abdomen was prepped and draped in routine sterile fashion. After timeout, I injected local anesthesia by using 1% lidocaine mixed with 0.5% Marcaine just above the umbilicus. Then I made a small incision just above umbilicus, opened fascia and opened peritoneum under direct vision, put a Wilfredo trocar in, connected to CO2 to create pneumoperitoneum. Flow rate is 6 liters per minute. Pressure not more than 14 mmHg. Once we got a nice pneumoperitoneum, we put the camera in, looked around the abdomen, shows normal finding on the small bowel, large bowel; however, the appendix was enlarged with some inflammation, confirmed diagnosis of acute appendicitis. Then, we put another two 5 mm trocar on the left lower quadrant area. Once all trocars in, we used the grasper to hold the appendix, used the harmonic to take down appendiceal, rechecked, no active bleeding and then we used the Endo-MELLY staple 45 mm transection on the base of the appendix, rechecked the staple line intact. No active bleeding, no leak. Then we removed the appendix through the catch bag. Then we reinserted Wilfredo trocar in, connected to CO2 to create pneumoperitoneum, again looked around the abdomen, the staple line intact and no active bleeding, no leak. Then we removed all trocar under direct vision. No active bleeding from the trocar site. Pneumoperitoneum was released, now I closed the umbilical incision, fascial layer by using #1 Vicryl [id number] x2, closed subcutaneous layer by using 2-0 Vicryl interruptedly, closed skin by using 4-0 Vicryl continuous running. Then, we closed another two 5 mm trocar site skin only by using 4-0 Vicryl. Then, we put the dressing on. The patient tolerated the procedure well. All instrument, needle and sponge count were correct x2 at the end of the case. The patient transferred to recovery room in stable condition. After the procedure, I did talk to the patient and patient's mom about the OR finding and procedure we did, she understands. Also, the specimen sent to pathology. I attest to the content of the Intraoperative Record and any orders documented therein. Any exception s are noted below.
[2020-04-04] MEDS: OXYCODONE/ACETAMINOPHEN 5mg/325mg TAB PO PRN (04:03)
[2020-04-04 06:32] LABS: Hematocrit (blood only) 37.9 % (37-47); Immature Granulocytes # (auto) 0.01 K/uL (0.00-0.02); Immature Granulocytes % (auto) 0.2 %; Lymphocytes # (auto) 0.67 K/uL (1.2-3.4); Lymphocytes % (auto) 10.8 %; Mean Corpuscular Hemoglobin 29.7 pg (25-34); Mean Corpuscular Hgb Conc 34.3 g/dL (32-36); Mean Corpuscular Volume 86.5 fL (80-100); Mean Platelet Volume 10.3 fL (7.4-10.4); Monocytes # (auto) 0.14 K/uL (0.11-0.59); Monocytes % (auto) 2.3 %; Neutrophils % (auto) 86.7 %; Platelet Count 218 K/uL (130-400); RDW Coefficient of Variation 12.4 % (11.5-14.5); RDW Standard Deviation 39.6 fL (36.4-46.3); Red Blood Count 4.38 M/uL (4.2-5.4); White Blood Count 6.22 K/uL (4.8-10.8)
[2020-04-04] MEDS ORDERED: ACETAMINOPHEN 325 MG TAB PO PRN (09:38)
--- NOTE | 2020-04-04 10:44 | Discharge Summary ---
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 Has some left upper abdominal pain and then more so in lower right abdomen. No improvement. Bowels have been more frequent but no diarrhea. No nausea or vomiting. never had this type of pain before. No prior abdominal surgeries. Er work-up included labs which showed no leukocytosis. Pelvic ultrasound, abdominal xray, appendix ultrasound showed no abnormalities. CT scan of abdomen and pelvis with IV and oral contrast was then ordered due to continued RLQ abdominal pain which showed dilation of the tip of appendix measuring 1.3 cm. No evidence of perforation or abscess consistent with tip appendicitis. Principal Diagnosis Acute appendicitis Discharge Exam Constitutional WD/WN, vitals as above no acute distress Respiratory normal respiratory effort; no respiratory distress Gastrointestinal (Abdomen) Inspection/Auscultation: abdomen normal to inspection, + abdomen distended (mild), normal bowel sounds and + abdominal surgical incision (covered with dry dressings clean and intact) Percussion/Palpation: + abdomen tender (at incision sites, appropriate postop) and abdomen soft; no guarding and abdomen not rigid Skin no rashes, warm and dry Psychiatric A+Ox3, euthymic affect Discharge Data Allergies Allergy/AdvReac Type Severity Reaction Status Date / Time No Known Drug Allergies Allergy Verified 04/03/20 11:59 Procedures Performed Operation Date: 04/03/20 13:45 Actual Procedures p Laparoscopic Appendectomy(Not Applicable) - Lj Singh MD Ordered Studies 04/03/20 10:32 CT abd pelvis oral and IV con Stat 04/03/20 10:33 US appendix Stat 04/03/20 10:35 US pelvic complete Stat US transvaginal Stat Hospital Course (1) Acute appendicitis: Patient was taken to operating room for laparoscopic appendectomy by Dr. Singh on 04/03/2020. Patient found to have dilated and inflamed appendix consistent with appendicitis without perforation or abscess. Patient tolerated procedure well and was transferred to recovery room then to medical/surgical floor for postop care. She was started on clear liquids, IV fluids, IV Cefoxitin for postop antibiotics, activity as tolerated, and PO Percocet prn pain. POD # 1 vitals stable, afebrile. Pain controlled, tolerated clear liquids. Urinating without difficulty. Preop pain resolved. Diet advanced to low fiber. Encouraged to ambulate. IV fluids discontinued. Patient was discharged home in afternoon on POD # 1 in stable condition. Total Time Total Time Spent Total Time Spent (In Minutes): 30 Total Time Includes: Examination of the Patient, Discharge Planning and Medication Reconciliation Discharge Plan Discharge Items Patient Disposition: Home - Self-Care Reason For Visit: ACUTE ABDOMINAL PAIN Discharge Diagnosis: Acute appendicitis Activity: Per Instructions section Non-emergency contact: Primary Care Provider and Surgeon Call non-emergency contact if: your pain is not controlled, your pain is worsening, you have a fever, your temperature is above 101, your wound has increased redness, your wound has increased drainage and your wound pain has increased Follow-up/Referrals: [place] [Primary Care Provider] - Diet: Regular Addtl Attending Provider Instructions: Post-Surgical ~Discharge Instructions Activity Recommendations: - lifting limitation: (25 pounds for 3-4 weeks), - exercise/sex/sports limit: (nonstrenuous for 2 weeks), - driving or machine use limit: (none for 1 week or until pain free or no longer taking narcotic pain medication), - Shower/bathe limit: (december shower beginning Friday) Diet: - Resume previous diet , slowly advance diet as tolerated in next few days -No dietary restrictions SPECIAL CARE INSTRUCTIONS: - May shower starting Friday. Sponge bath around incision and wash hair in meantime. Friday, remove outer dressings and let water run over area and pat dry. Cover incisions with small bandage and change daily. - Leave steri strips on for one week and then remove. - Call the surgeon's office with any questions or concerns - - (ex. temperature higher than 101 degrees F, excessive bleeding or pain). MEDICATIONS: - Resume previous medications unless instructed otherwise by your surgeon. - May take extra strength Tylenol and Ibuprofen as needed for mild pain. -Tylenol 650 mg every 6 hours as needed - Ibuprofen 600 mg every 6 hours as needed (take with food) - Percocet 1 every 4 hours, as needed for moderate to severe pain - Recommend stool softener (OTC Colace) while taking narcotic pain medication to prevent constipation. If stools are loose, discontinue. FOLLOW UP VISIT: - Please call the office to schedule a two week follow-up appointment. Office number Pending Studies at Discharge: Yes (Pathology, will be reviewed at follow-up visit) Stand-Alone Forms: My [facility], Smoking Cessation Medications and DC Order Prescriptions: New oxycodone-acetaminophen [Percocet] 5-325 mg tablet 1 tab PO Q4H PRN (Reason: pain) Qty: 10 RF: 0 Continued norgestimate-ethinyl estradiol [Sprintec (28)] 0.25-35 mg-mcg tablet 1 tab PO QAM RF: 0 Discharge Orders: Discharge Order (Routine); Ordered 04/04/20 Ordered By: Fern Spann Admission Data Admit Date/Time: 04/03/20 20:07 Attending Provider: Lj Singh Admit Provider: Lj Singh Primary Care Provider: [facility]
== END 2020-04-04 14:31 | disposition home or self-care (01) ==
LOC: ED 09:49 → 3E 18:23 → OR 18:23